=== PATIENT | female | born 1960 ===

== ENCOUNTER 2020-07-28 13:21 | Emergency (ER) | payer SELFPAY ==
[2020-07-28 13:43] VITALS: BP 163/99
--- NOTE | 2020-07-28 13:53 | Emergency Department Report ---
Chief Complaint: Medical Clearance Stated Complaint: BLOOD PRESSURE CHECK Time Seen by Provider: 07/28/20 13:51 - HPI History of Present Illness: Patient is a 60-year-old female presents emergency room for blood pressure check. She states that she is currently in outpatient program at [facility] and they advised for her to be seen in the emergency department secondary to elevated blood pressure reading. She states that she last had her blood pressure checked 3 days ago and it was slightly elevated but otherwise stable. Denies any prior history of hypertension. She denies any symptoms related to blood pressure. She denies any chest pain, shortness of breath, headache, vision changes, numbness, weakness. She denies any past medical history. She denies any allergies to medications. She is a smoker. She endorses previous drug use, she states that she quit on 07/20/2020. Vitals with moderately elevated blood pressure, otherwise stable BP is 163/99 On exam: Non toxic appearing, no acute distress atraumatic, normocephalic normal appearance of the eyes, PERRL, EOMI, no periorbital edema or ecchymosis moist mucus membranes regular heart rate and rhythm, no gallops, no rubs, no murmurs breath sounds are clear bilaterally, no w/r/r A&O x4, no focal neuro deficit skin is warm, dry, intact Patient is presenting for a blood pressure check for outpatient [facility] treatment She has no symptoms at all related to blood pressure She did not realize her blood pressure was elevated until she had it checked at the treatment center he denies any chest pain, shortness of breath, headache, vision changes, numbness, weakness. The up-to-date medical literature does not recommend emergently lowering asymptomatic elevated blood pressure Patient states that she does have a primary care doctor she can follow-up with Discussed lifestyle modifications, low-sodium diet, aerobic exercise with patient Advised to keep a blood pressure log and take this to the primary care doctor Discussed very strict return precautions and to return if she began experiencing any symptoms Medical screen examination performed there is no threat to life or limb at this time - Exam Vital Signs: Vital Signs 07/28/20 13:42 Temperature 98.4 F Pulse Rate 90 Respiratory 16 Rate Blood Pressure 163/99 [Right] O2 Sat by Pulse 99 Oximetry MSE screening note: Focused history and physical exam performed. ED Disposition for MSE Clinical Impression: Blood pressure check, Elevated blood pressure reading Disposition: Z-07 MED SCREENING EXAM-LEFT Is pt being admited?: No Does the pt Need Aspirin: No Condition: Stable Instructions: Hypertension, Adult Additional Instructions: Please follow-up with a primary care doctor regarding elevation in your blood pressure. Increase your water intake. Eat a low-sodium diet. Incorporate 30 to 60 minutes of daily exercise. Please keep a blood pressure log and take this to the primary care doctor. Return to emergency room for any new or worsening symptoms. you do not have an emergent medical condition at this time preventing outpatient [facility] treatment, it is very important that you follow-up with your primary care doctor regarding your blood pressure Referrals: CHUY NATARAJAN MD [Staff Physician] - 2-3 Days [facility] [Provider Group] - 2-3 Days Time of Disposition: 13:54 Print Language: UKRAINIAN
== END 2020-07-28 14:25 | disposition left against medical advice (07) ==
LOC: ED 13:21
DX: I10 Essential (primary) hypertension (principal); Z53.21 Procedure and treatment not carried out due to patient leaving prior to being seen by health care provider